=== PATIENT | male | born 1995 ===

== ENCOUNTER 2017-01-24 14:59 | Emergency (ER) | payer BC ==
[2017-01-24 15:20] VITALS: BP 114/73
[2017-01-24] MEDS ORDERED: methylPREDNISolone 125 MG* 2 ML VIAL IM ONE (15:58)
--- NOTE | 2017-01-24 16:06 | UC ---
Skin Complaint HPI - HPI Summary HPI Summary: LEFT LOWER LEG STUNG BY WASP/HORNET OR BEE FOUR DAYS AGO; PAIN SWELLING STILL CONTINUE. UNRELIEVED BY OTC STEROID MEDICATION , CALAMINE LOTION OR BAKING SODA POULTICES. NO FEVER. NO RED STREAKS. NO SOB. NO CHEST PAIN. - History of Current Complaint Chief Complaint: UCSkin Time Seen by Provider: 01/24/17 15:48 Stated Complaint: BEE STING FOOT STILL SWOLLEN/SORE Hx Obtained From: Patient Onset/Duration: Sudden Onset, Lasting Days, Still Present Skin Exposure Onset/Duration: Days Ago Onset Severity: Mild Current Severity: Mild Location: Discrete Character: Swelling, Pruritus, Redness Aggravating: Touch Alleviating: Nothing, OTC Creams/Salves Associated Signs & Symptoms: Positive: Rash. Negative: Difficulty Breathing, Fever, Chills, Chest Pain, Hoarseness, Throat Tightening, Drainage, Bruising, Tenderness, Red Streaks, Joint Swelling Related History: Possible Reaction to: Insect - Allergy/Home Medications Allergies/Adverse Reactions: Allergies Allergy/AdvReac Type Severity Reaction Status Date / Time No Known Allergies Allergy Verified 01/24/17 15:12 Home Medications: Home Medications NK [No Home Medications Reported] 01/24/17 [History Confirmed 01/24/17] Review of Systems Constitutional: Negative Skin: Rash - LEFT LOWER LEG Eyes: Negative ENT: Negative Respiratory: Negative Cardiovascular: Negative Gastrointestinal: Negative Genitourinary: Negative Motor: Negative Neurovascular: Negative Musculoskeletal: Negative Neurological: Negative Psychological: Negative All Other Systems Reviewed And Are Negative: Yes PMH/Surg Hx/FS Hx/Imm Hx Previously Healthy: Yes - Surgical History Surgical History: None - Family History Known Family History: Negative: Blood Disorder - Social History Occupation: Employed Full-time Lives: With Family Alcohol Use: Occasionally Substance Use Type: None Smoking Status (MU): Never Smoked Tobacco Physical Exam Triage Information Reviewed: Yes Appearance: Well-Appearing, No Pain Distress, Well-Nourished Vital Signs: Initial Vital Signs Temp 98.5 F 01/24/17 15:12 Pulse 78 01/24/17 15:12 Resp 16 01/24/17 15:12 BP 114/73 01/24/17 15:12 Pulse Ox 100 01/24/17 15:12 Vital Signs Reviewed: Yes Eye Exam: Normal ENT Exam: Normal ENT: Positive: Normal ENT inspection, TMs normal Dental Exam: Normal Neck exam: Normal Neck: Positive: Supple, Nontender, No Lymphadenopathy Respiratory Exam: Normal Respiratory: Positive: Chest non-tender, Lungs clear, Normal breath sounds, No respiratory distress Cardiovascular Exam: Normal Cardiovascular: Positive: RRR, No Murmur, Pulses Normal Abdominal Exam: Normal Musculoskeletal Exam: Normal Musculoskeletal: Positive: Strength Intact, ROM Intact Neurological Exam: Normal Psychological Exam: Normal Skin: Positive: rashes - 3CM X 3CM ERYTHEMATOUS EXCORIATED AREON MEDIAL DISTAL LEG Course/Dx - Differential Diagnoses - Skin Complaint Differential Diagnoses: Allergic Reaction, Cellulitis, Contact Dermatitis, Impetigo, MRSA, Poison Nena, Poison [place], Tinea - Diagnoses Provider Diagnoses: LEFT LOWER LEG IONSECT STING/LOCAL REACTION Discharge - Discharge Plan Condition: Stable Disposition: HOME Patient Education Materials: Insect Bite or Sting (ED) Referrals: Vasiliy Blackwell DO [Primary Care Provider] - Additional Instructions: BENADRYL 50 mg PO BID FOR FIVE DAYS; PEPCID 40mg PO BID FOR FIVE DAYS
== END 2017-01-24 16:35 | disposition home or self-care (01) ==
LOC: UCCORT 14:59
DX: T63.441A Toxic effect of venom of bees, accidental (unintentional), initial encounter (principal); M79.89 Other specified soft tissue disorders; Y92.9 Unspecified place or not applicable
CPT/HCPCS: 96372; 99201; G0463; J2930